=== PATIENT | female | born 1995 | race Caucasian/White ===

== ENCOUNTER → 2017-08-07 | Outpatient (CLI) | payer BC ==
[~2017-08-07] MED LIST: REGLAN 10MG10 MG/TAB PO; SARAFEM20 MG PO; TROKEN200 PO; ULTRAM 50MG TAB50 MG PO; ZOFRAN8 MG PO
== END ==
LOC: COL.RAD 08-06 14:30
DX: R11.2 Nausea with vomiting, unspecified (principal)

== ENCOUNTER → 2018-11-19 | Outpatient (CLI) | payer BC, OTHER | LOC: COL.RAD 14:20 | DX: R11.2 Nausea with vomiting, unspecified (principal); R19.5 Other fecal abnormalities | CPT/HCPCS: Q9967 ==